=== PATIENT | male | born 2005 | race Caucasian/White ===

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

== ENCOUNTER 2025-02-26 16:26 | Outpatient (REF) | payer BC, SELFPAY ==
[2025-02-26 22:15] LABS: MRSA PCR Negative (Negative)
== END 2025-02-26 16:27 | disposition home or self-care (01) ==
LOC: LBN 16:26
PROVIDERS: PCP Pediatrics; Visit Provider Nurse Practitioner Family
DX: L98.9 Disorder of the skin and subcutaneous tissue, unspecified (principal)
CPT/HCPCS: 87641